=== PATIENT | female | born 2000 | race Caucasian/White ===

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

== ENCOUNTER 2024-03-29 09:49 | Emergency (ER) | payer BC, SELFPAY ==
[2024-03-29 09:50] VITALS: BP 137/88; PULSE 117; RESP 16; TEMP 36.6; O2SAT 98; BMI 38.5
--- NOTE | 2024-03-29 09:52 | NURSING ---
NO OLD EKGS
--- NOTE | 2024-03-29 09:54 | EKG12_ITS ---
Test Reason : CP Blood Pressure : / mmHG Vent. Rate : 110 BPM Atrial Rate : 110 BPM P-R Int : 162 ms QRS Dur : 084 ms QT Int : 324 ms P-R-T Axes : 059 041 029 degrees QTc Int : 438 ms Sinus tachycardia Otherwise normal ECG Confirmed by TACO RIVERA, MAGAN ([id number]), editor department JOSE CURTIS ([id number]) on 03/30/2024 8:35:35 AM Referred By: NASREEN Confirmed By:MAGAN ESPAÑA MD
[2024-03-29] MEDS: 0.9% Normal Saline (1000mL) 1,000 ML 999 ML IV (10:08)
[2024-03-29 10:18] LABS: Absolute Lymphocyte Count 1.21 X10^3/uL (0.83-4.51); Absolute Neutrophil Count 10.1 X10^3/uL (2.0-7.7); Basophil# 0.02 X10^3/uL; Basophil% 0.2 % (0-1); Eosinophil# 0.05 X10^3/uL; Eosinophils% 0.4 % (0-5); Hematocrit 35.3 % (37-47); Hemoglobin 11.7 g/dL (12.0-15.0); Lymphocyte # 1.21 X10^3/ul (0.83-4.51); Lymphocyte % 10.1 % (19-41); Mean Corp Hgb Conc 33.1 g/dL (32-36); Mean Corpuscular Hgb 25.8 pg (27.0-32.0); Mean Corpuscular Volume 77.8 fL (81-99); Mean Platelet Vol. 9.8 fl (6.2-12.0); Monocyte# 0.56 X10^3/uL; Monocyte% 4.7 % (0-10); NRBC Flagged by Analyzer 0 % (0-5); Neutrophil # 10.07 X10^3/uL (2.7-7.7); Neutrophil % 84.3 % (47-70); Platelet Count 240 K/mm3 (150-450); RBC Distribution Width CV 13.9 % (11.6-14.6); RBC Distribution Width SD 38.9 fl (35.1-43.9); Red Blood Count 4.54 M/mm3 (4.2-5.4)
[2024-03-29 10:35] LABS: Anion Gap 7 (5-15); BUN 5 mg/dL (7-18); Calcium,Total 9.2 mg/dL (8.5-10.1); Chloride 105 mmol/L (98-107); Creatinine, Serum 0.46 mg/dL (0.55-1.02); EST Glomerular Filtration Rate 180 mL/min (>60); Est Glom Filt Rate - Afr Amer 218 mL/min (>60); Glucose 122 mg/dL (74-106); Potassium 3.8 mmol/L (3.5-5.1); Sodium Level 134 mmol/L (136-145); Troponin-I HS < 3 pg/mL (3.0-54.0)
[2024-03-29 10:40] LABS: D-Dimer Quantitative (DVT/PE) 1.35 FEU/ug/m (0.27-0.49)
--- NOTE | 2024-03-29 10:42 | CT_ITS ---
STUDY: CTA CHEST REASON FOR EXAM: Female, 23 years old. Elevated d-dimer. Chest tightness and chest pain. The patient is 26 weeks . The patient was shielded appropriately. RADIATION DOSAGE (If Supplied By Facility): CTDIvol = ( 10.29 ) mGy, DLP = ( 473.26 ) mGycm TECHNIQUE: The examination was performed with the intravenous administration of IV 100mL Isovue-370. Post-processing of the angiographic images was performed, with multiplanar reformation and 3D reconstruction. Limited study due to the patient motion artifact. Individualized dose optimization techniques were used for this CT. COMPARISON: None. FINDINGS: Elevation of the right hemidiaphragm. Normal enhancement of the main pulmonary artery and right and left pulmonary arteries. Normal enhancement of the bilateral peripheral pulmonary arteries. There is no demonstrated pulmonary embolism. Normal thoracic aorta and visualized great vessels. There is no demonstrated aortic dissection. There is thickening of the anterior pericardium suggestive of pericardial effusion. Correlation with a cardiac echo recommended. Normal mediastinum. Normal hilar regions. Normal visualized trachea and bronchi. The lungs are well expanded. Normal pulmonary parenchyma. Normal pleura. Normal chest wall structures. Normal osseous structures. Normal visualized upper abdomen. CT/CTA Chest W/WO Contrast IMPRESSION: No evidence of pulmonary embolism although the study is limited. Pericardial thickening. Correlation with echocardiogram recommended. Electronically Signed: Micky Goel MD at 12:09 EDT ,
--- NOTE | 2024-03-29 10:54 | ED.VIS.CHEST ---
HPI History of Present Illness Chief Complaint: Chest Pain Narrative Narrative: 23-year-old female currently G1, P0 at 26 weeks 3 days presenting with chest tightness. She states is not sharp or pleuritic. It is worse laying down and better sitting forward. She states that while she was sleeping last night she woke up several times feeling short of breath and having chest tightness. She denies having a fever, chills, cough. She states that when she is ambulating it is not worse or better. Denies any recent illnesses. This started sometime overnight. She went to urgent care and was sent to the ED for evaluation. No history of DVT/PE. No cardiac history. when in bed. She states also when she bends over to pick something up she notices worse. PFSH PFSH Medical History no medical history Home Medications ?Medication ?Instructions ?Recorded ?Last Taken ?Type No Known/Unobtainable [No Known 10/13/15 Unknown History Home Medications] Allergy/AdvReac Type Severity Reaction Status Date / Time No Known Allergies Allergy Verified 10/13/15 17:21 Family History no significant family his Surgical History (Updated 03/29/24 @ 10:21 by Raymond Amaro) Hx of tonsillectomy [place] teeth removed Social History Smoking Status: Never smoker EXAM Physical Exam Const Vital Signs: 03/29/24 09:50 03/29/24 10:22 03/29/24 10:25 Temperature 98 F Temperature Source Temporal Pulse Rate 117 H Respiratory Rate 16 Respiratory Effort Normal Blood Pressure 137/88 H Blood Pressure Mean 104 Pulse Ox 98 Oxygen Delivery Method Room Air Room Air 03/29/24 11:49 03/29/24 13:00 Temperature Temperature Source Pulse Rate 107 H 114 H Respiratory Rate 17 18 Respiratory Effort Blood Pressure 119/68 117/78 Blood Pressure Mean 85 91 Pulse Ox 99 100 Oxygen Delivery Method Room Air Room Air General Appearance ED: Negative for pallor HEENT Reports normocephalic, head/scalp atraumatic and moist mucous membranes Eyes PERRL and EOMs intact bilaterally Chest Wall inspection of chest normal Resp normal respiratory effort and clear to auscultation bilaterally Auscultation: Negative for rales, rhonchi or wheezes Cardio regular rate and regular rhythm GI normal to inspection, nondistended, normoactive bowel sounds and non-distended Auscultation: normoactive bowel sounds Palpation: soft Narrative: Deferred Extremity normal to inspection General Extremety ED: Negative for edema or tenderness General Extremity: Negative for edema Neuro oriented x3 and CN's II-XII intact bilaterally Sensorium / Orientation: alert Motor Exam: strength 5/5 throughout Psych mental status grossly normal Attitude: No agitated Skin no rashes or lesions noted and no wounds General Skin Exam: Negative for jaundice or pallor MDM MDM MDM Narrative Medical decision making narrative: Patient presenting with chest pain. She is 28 weeks . Differential includes but is not limited to ACS, PE, pneumonia, Boerhaave's, pneumothorax, muscle strain, costochondritis, pericarditis. CBC will be obtained to assess white blood cell count, hemoglobin, platelets. BMP to assess renal function, electrolytes, glucose. High-sensitivity troponin and EKG to assess for ischemia/dysrhythmia. Will obtain a D-dimer to assess for PE. CBC shows minimal white blood cell count at 12.0. Hemoglobin 11.7. Platelets are normal at 240. Renal function and electrolytes within normal limits. High-sensitivity troponin less than 3. EKG sinus tachycardia at a rate of 110 bpm without sign of ischemic change or dysrhythmia. D-dimer was elevated at 1.35 so we will obtain a CTA of the chest after a long discussion with her about risk benefits. She is amenable to this. EkG interpreted by myself as sinus tachycardia at a rate of 110 bpm with signs of ischemic changes. Does not appear to be consistant with pericarditis as her symptoms would would suggest. CTA was negative for PE, dissection, or other acute pulmonary findings but does show thickening of the pericardium. Discussed the case with Dr. Jacob who recommended 324 mg asa and we will obtain a stat echocardiogram. Unfortunately this will have to be signed out to the incoming ed physician. Patient is updated and in stable condition. 1. Chest pain 2. Dyspnea Lab Data Attestation: I reviewed the patient's lab results. Labs: Laboratory Results - last 24 hr 03/29/24 03/29/24 10:06 10:09 WBC 12.0 H RBC 4.54 Hgb 11.7 L Hct 35.3 L MCV 77.8 L MCH 25.8 L MCHC 33.1 RDW Std Deviation 38.9 RDW Coeff of Mariam 13.9 Plt Count 240 MPV 9.8 Immature Gran % (Auto) 0.300 Neut % (Auto) 84.3 H Lymph % (Auto) 10.1 L Avery % (Auto) 4.7 Eos % (Auto) 0.4 Baso % (Auto) 0.2 Absolute Neuts (auto) 10.1 H Absolute Lymphs (auto) 1.21 Nucleated RBC % 0 ESR 30 D-Dimer Quant (PE/DVT) 1.35 H* Sodium 134 L Potassium 3.8 Chloride 105 Carbon Dioxide 22.0 Anion Gap 7 BUN 5 L Creatinine 0.46 L Estim Creat Clear Calc 261.30 Est GFR (MDRD) Af Amer 218 Est GFR (MDRD) Non-Af 180 BUN/Creatinine Ratio 11.0 Glucose 122 H Calcium 9.2 Troponin I High Sens < 3 L C-React Prot Ext Range 21.00 H Radiography Diagnostic Testing: Clinical Impression(s) from Imaging Studies Chest CTA 03/29/24 10:42 IMPRESSION: No evidence of pulmonary embolism although the study is limited. Pericardial thickening. Correlation with echocardiogram recommended. Electronically Signed: Micky Goel MD at 12:09 EDT , Discharge Plan Triage Chief Complaint: Chest Pain ED Provider: Gianfranco Hunter Dx/Rx/DC Orders Prescriptions: No Action No Known Home Medications Primary Care Provider: Epi Martini Referrals: Epi Martini MD [Primary Care Provider] - Print Language: Taiwanese
[2024-03-29 11:49] VITALS: BP 119/68; PULSE 107; RESP 17; O2SAT 99
[2024-03-29 12:42] LABS: Erythrocyte Sedimentation Rate 30 mm/hr (0-30)
[2024-03-29 13:00] VITALS: BP 117/78; PULSE 114; RESP 18; O2SAT 100
--- NOTE | 2024-03-29 13:00 | ECHOD_ITS ---
Reason For Study: CHEST PAIN Procedure This was a 2D Doppler, Color Flow transthoracic echocardiogram. Exam performed portable in ED. Left Ventricle Normal LV size. Left ventricular systolic function is normal. The left ventricular ejection fraction is 60 %. No regional wall motion abnormalities noted. Right Ventricle Normal right ventricle. Normal systolic function. Atria Normal left atrium. Normal right atrium. Mitral Valve The mitral valve is structurally normal. No prolapse or stenosis seen. Tricuspid Valve Normal tricuspid valve. Aortic Valve Trisinus/trileaflet aortic valve. Pulmonic Valve Normal pulmonic valve. Great Vessels Normal aortic root. The pulmonary artery is normal size. Normal inferior vena cava. Pericardium/Pleural No pericardial effusion. MMode/2D Measurements & Calculations LVIDd: 5.4 cm IVSd: 0.86 cm LVOT diam: 2.2 cm LVIDs: 3.7 cm LVPWd: 0.87 cm LVOT area: 3.9 cm2 RVDd: 3.7 cm FS: 32.2 % Ao root diam: 3.0 cm LAV(MOD-bp): 45.9 ml LVAd ap4: 29.0 cm2 LAV(MOD-bp) Indexed: 19.9 ml/m2 LVLd ap4: 8.2 cm LAV(MOD-sp2): 47.0 ml EDV(MOD-sp4): 85.6 ml LAV(MOD-sp4): 44.2 ml EDV(sp4-el): 87.3 ml LVAs ap4: 17.4 cm2 LVLs ap4: 6.7 cm ESV(MOD-sp4): 39.2 ml ESV(sp4-el): 38.6 ml EF(MOD-sp4): 54.2 % EF(sp4-el): 55.8 % LVAd ap2: 31.2 cm2 SV(MOD-sp4): 46.4 ml SV(MOD-sp2): 54.6 ml LVLd ap2: 8.4 cm EDV(MOD-sp2): 97.4 ml EDV(sp2-el): 98.0 ml LVAs ap2: 18.6 cm2 LVLs ap2: 6.6 cm ESV(MOD-sp2): 42.8 ml ESV(sp2-el): 44.5 ml EF(MOD-sp2): 56.1 % SV(sp4-el): 48.7 ml LA dimension(2D): 4.7 cm LA A4 area: 18.3 cm2 RA A4 area: 15.8 cm2 TAPSE: 2.4 cm Time Measurements MV dec time: 0.14 sec Doppler Measurements & Calculations MV E max yakov: 112.4 cm/sec Lat Peak E' Yakov: 17.8 cm/sec Med Peak E' Yakov: 13.1 cm/sec E/E' lat: 6.3 E/E' med: 8.6 Ao V2 max: 169.3 cm/sec LV V1 max: 129.4 cm/sec SV(LVOT): 99.1 ml Ao max P.5 mmHg LV V1 max P.7 mmHg Ao V2 mean: 121.2 cm/sec LV V1 mean P.1 mmHg Ao mean P.6 mmHg LV V1 mean: 96.6 cm/sec Ao V2 VTI: 31.5 cm LV V1 VTI: 25.1 cm AV (velocity ratio): 0.80 SHANELL(I,D): 3.1 cm2 SHANELL(V,D): 3.0 cm2 PA V2 max: 120.8 cm/sec PA max PG (full): 2.3 mmHg ECHO/Echo Complete Interpretation Summary Normal LV size. Left ventricular systolic function is normal. The left ventricular ejection fraction is 60 %. No pericardial effusion. Structurally normal valves. Ordering Physician: Gianfranco Hunter Performed By: Maricarmen Desai RDCS
[2024-03-29] MEDS: Aspirin 81 MG TAB.CHEW 324 MG PO (13:06)
[2024-03-29 15:00] VITALS: BP 128/77; PULSE 99; RESP 16; O2SAT 100
[2024-03-29 17:00] VITALS: BP 114/73; PULSE 106; RESP 17; TEMP 36.2; O2SAT 98
== END 2024-03-29 17:22 | disposition home or self-care (01) ==
PROVIDERS: Emergency Provider Student in an Organized Health Care Education/Training Program; PCP Family Medicine; Visit Provider Student in an Organized Health Care Education/Training Program
DX: O26.893 Other specified pregnancy related conditions, third trimester (principal); R06.00 Dyspnea, unspecified; R07.89 Other chest pain; R79.89 Other specified abnormal findings of blood chemistry; Z79.82 Long term (current) use of aspirin; Z3A.28 28 weeks gestation of pregnancy
CPT/HCPCS: 71275; 80048; 84484; 85025; 85379; 85652; 86140; 93005; 93306; 96360; 96361; 99283; Q9967

== ENCOUNTER 2024-06-23 07:25 | Inpatient (IN) | payer BC, SELFPAY ==
[2024-06-23] VITALS (42 sets, daily range): BP systolic 88–151; BP diastolic 50–87; PULSE 72–107; RESP 16–18; TEMP 36.1–37.2; O2SAT 82–100; BMI 42.5
[2024-06-23] MEDS: Lactated Ringers 1,000 ML 50 ML IV ×2 (07:50→16:18)
[2024-06-23 08:06] LABS: Absolute Lymphocyte Count 1.65 X10^3/uL (0.83-4.51); Absolute Neutrophil Count 8.2 X10^3/uL (2.0-7.7); Basophil# 0.02 X10^3/uL; Basophil% 0.2 % (0-1); Eosinophil# 0.05 X10^3/uL; Eosinophils% 0.5 % (0-5); Hematocrit 34.5 % (37-47); Hemoglobin 11.5 g/dL (12.0-15.0); Lymphocyte # 1.65 X10^3/ul (0.83-4.51); Lymphocyte % 15.5 % (19-41); Mean Corp Hgb Conc 33.3 g/dL (32-36); Mean Corpuscular Hgb 26.4 pg (27.0-32.0); Mean Corpuscular Volume 79.1 fL (81-99); Mean Platelet Vol. 10.9 fl (6.2-12.0); Monocyte# 0.66 X10^3/uL; Monocyte% 6.2 % (0-10); NRBC Flagged by Analyzer 0 % (0-5); Neutrophil # 8.21 X10^3/uL (2.7-7.7); Platelet Count 238 K/mm3 (150-450); RBC Distribution Width CV 13.7 % (11.6-14.6); RBC Distribution Width SD 39.1 fl (35.1-43.9); Red Blood Count 4.36 M/mm3 (4.2-5.4); White Blood Count 10.7 K/mm3 (4.4-11.0)
[2024-06-23] MEDS: Oxytocin 15 Units/NS 250ml 15 UNITS/250 ML IV.SOLN 2 UNITS IV (08:08)
--- NOTE | 2024-06-23 08:21 | PCM.HP.OB ---
HPI - General General Date of Admission: 06/23/24 HPI Narrative JAYESH MARSH, is a 24 F 2 38.5 weeks who presents for medically indicated IOL - CHTN and Obesity in BMI >40. pt offers no other concerns. PFSH PFS Medical History (Updated 06/23/24 @ 08:[address] Gracie Noel MD) Thyroid disorder Chronic hypertension Home Medications ?Medication ?Instructions ?Recorded ?Last Taken ?Type metoprolol tartrate 25 mg tablet 25 mg PO DAILY 03/29/24 Unknown History propylthiouracil 50 mg tablet 100 mg PO TID 03/29/24 Unknown History Allergy/AdvReac Type Severity Reaction Status Date / Time No Known Allergies Allergy Verified 06/23/24 07:48 Surgical History (Updated 06/23/24 @ 07:53 by Gina August) History of surgery Hx of tonsillectomy [place] teeth removed Social History Smoking Status: Never smoker History Elective abortions Hx Para 0 Spontaneous abortions Hx # Term Pregnancies Ectopic pregnancies Hx # Pregnancies Multiple births # of living children NST FHR Rate Baby A Baseline: 135 Variability:: Moderate Accelerations:: 15 x 15 Decelerations:: None NST Reactive:: Yes FHR Category:: Category I Uterine Activity:: irregular Vital Signs Vital Signs Vital Signs: 06/23/24 07:44 06/23/24 07:44 06/23/24 07:44 Temperature Temperature Source Temporal Pulse Rate 99 Respiratory Rate Blood Pressure 128/74 H BP Systolic 128 BP Diastolic 74 06/23/24 07:44 06/23/24 07:44 Temperature 97.0 F L Temperature Source Pulse Rate Respiratory Rate 16 Blood Pressure BP Systolic BP Diastolic Weight Weight: 130.635 kg Body Mass Index (BMI) 42.5 Physical Exam Narrative VE: 3/65/-2- AROM performed Small amount clear fluid Const alert and oriented x3 General Appearance: cooperative HEENT normocephalic GI GI Narrative: Gravid, non tender to palpation. OB / External & Speculum: external exam normal Extremity normal to inspection Skin no rashes or lesions noted Neuro oriented x3 and CN's II-XII intact bilaterally Psych Appearance: grossly normal Labs Labs Labs: Antibody Screen Pending Hct 34.5 % (37-47) L Hgb 11.5 g/dL (12.0-15.0) L Syphilis Total Ab Pending Miscellaneous Test Assessment & Plan (1) Obesity affecting in third trimester, antepartum: (2) 38 weeks gestation of : (3) Chronic hypertension: (4) Thyroid disorder: COMMENT: hyperthyroidism PLAN: Plan Admit to L&D [place] FHR/TOCO Epidural if requested for pain Monitor VS Anticipate Pitocin/AROM for IOL
[2024-06-23] MEDS: fentaNYL-bupivacaine (epidural) 100 ML BAG EPIDURAL ×2 (12:17→17:00)
--- NOTE | 2024-06-23 12:43 | PN_ITS ---
Progress Note pt seen at bedside. VE performed. 2, IUPC placed. Pt starting to get comfortable with Epidural in place. continue pitocin. FHR tracing cat 1 Re active.
--- NOTE | 2024-06-23 12:43 | PCM.PN.BLA ---
Progress Note pt seen at bedside. VE performed. /2, IUPC placed. Pt starting to get comfortable with Epidural in place. continue pitocin. FHR tracing cat 1 Reactive.
[2024-06-23] MEDS: Acetaminophen 500 MG Tablet PO (17:55)
[2024-06-23] MEDS: Sodium Citrate/Citric Acid 30 ML UDC PO (22:31)
--- NOTE | 2024-06-23 22:58 | PCM.PN.BLA ---
Progress Note pt at 6cm for >4hours with membranes ruptured and on pitocin with current [place] units of 150- 200, shared medical decision making at this time with patient is to proceed with primary c/s. Pt was counseled on risks of c/s - given opportunity to ask questions. Had to wait for OR due to other CS being done at this current time.
[2024-06-23] MEDS: Lidocaine 1% (20 ml mdv) 20 ML Vial INFILT (23:30)
[2024-06-24] VITALS (23 sets, daily range): BP systolic 91–143; BP diastolic 52–102; PULSE 78–124; RESP 14–18; TEMP 36.1–37.3; O2SAT 95–100
[2024-06-24] MEDS: Azithromycin 500 MG in Dextrose 5%-Water (250mL Bag) 250 ML 250 MG IV
[2024-06-24] MEDS: Cefazolin 3 GM in 0.9% Normal Saline (100mL Bag) 100 ML IV
--- NOTE | 2024-06-24 00:27 | EX.PCM.OBRPT ---
Details Operative Information Date of Procedure: 06/24/24 Pre-Operative Diagnosis: Arrest of dilation, CPD, 38weeks gestation, obesity in (BMI >40, Chronic Hypertension, Hyperthyroidism, Post-Operative Diagnosis: Same, live male Indications Narrative: Patient was IOL for CHTN, Obesity with BMI >40. AROM and Pitocin was 6cm for >5hrs with ruptured membranes and adequate contractions. I examined patient in OR prior to start of case, Caput noted, 6cm/80-90/-3. Classification: OLIVE Procedure Type: low transverse supervisor small appliance assembly #1: Nohemy Buchanan supervisor small appliance assembly #2: dionisio brown [id number] Type of Anesthesia: Epidural, General (patient did not get enough pain relief, changed to general after fascial incision made. ) and Local with 1% Lidocaine Special Medications: hemoblast Antibiotic Given: Ancef 3 grams IV x1 and Zithromax 500 mg/5 mL X1 Drain: Lopez to straight drain Estimated Blood Loss: 750 Fluids Replaced: 850 Procedure Start Time: 23:34 Procedure Stop Time: 00:30 Time of Delivery: 23:46 Findings Description of Procedure: After informed consent was obtained the patient was taken the operating room. She was then placed in the supine position. She was prepped and draped in the normal sterile fashion. Anesthesia was not adequate. Lidocaine 1% was injected at incision site and Nitrous. At this time a Pfannenstiel skin incision was made with a knife was carried down to the underlying layer of the fascia. The fascial incision was then extended laterally using banegas scissor. pt still feeling pain- decision for General anesthesia. Rectus muscles were then in the midline bluntly and peritoneum was entered bluntly. Gentle opposing traction was placed. At this time the vesicouterine peritoneum was identified. Scalpel was used to make a uterine incision in a low transverse fashion. The uterus was then entered bluntly gentle opposing traction was placed to extend this incision. 's head was brought to the uterine incision was delivered atraumatically. was vigorous at delivery and delayed cord clamping performed. Cord was clamped and cut was handed to the waiting nursery team. The Placenta was removed from the uterus. The uterus was then removed from the abdominal cavity. The uterus was cleared of all clots and debris using a lap. At this time the uterine incision was reapproximated using #1 Vicryl in a running locked fashion. Hemostasis was appreciated. Posterior cul-de-sac was then cleared of all clots and debris. Uterus was placed back in the abdominal cavity. Gutters were cleared of all clots and debris. Uterine incision was reevaluated and oozing noted in right lateral aspect. Difficult to suture for hemotasis- hemoblast placed and pressure held, good hemostasis appreciated. At this time the peritoneum was grasped with Kellys reapproximated using #2 Vicryl suture in a running fashion. Hemoblast placed over rectus. Fascia was then reapproximated using #1 PDS in a running fashion. Subcu layer was irrigated with NS, HEMOBLAST placed and it was reapproximated with #2 0 plain gut suture in an interrupted fashion. Subcu layer was closed using 4-0 Monocryl in a subcu fashion. Dry sterile dressing was applied. Instrument lap needle count correct ?2. Anticipated normal postoperative course. Presentation: Positive for Vertex Amniotic Membrane Rupture Type: Artificial Amniotic Fluid Description: Clear Placental Delivery Description: Expressed Placenta Disposition: [facility] Cord Vessel Description: 3 Vessels Cord Entanglement: None Cord Gases: ABG and VBG A Gender: Male (1 minute): 9 (5 minute): 9 Delayed Cord Clamping: No Complications Risks of Surgery Discussed w/Patient: Bleeding, Anesthesia Risks, Infection and Injury to surrounding structure(s) including bowel and bladder Complications: conversion to General due to pain.
[2024-06-24] MEDS: Oxytocin 15 Units/NS 250ml 15 UNITS/250 ML IV.SOLN 83 UNITS IV (00:50)
[2024-06-24] MEDS: Ketorolac 30 MG/ML Syringe IV ×4 (01:19→19:58)
[2024-06-24] MEDS: Acetaminophen 500 MG Tablet 1000 MG PO ×4 (02:17→19:58)
[2024-06-24] MEDS: Lactated Ringers 1,000 ML 100 ML IV ×2 (02:45→07:13)
[2024-06-24 05:24] LABS: Hematocrit 27.1 % (37-47); Hemoglobin 9.1 g/dL (12.0-15.0); Mean Corp Hgb Conc 33.6 g/dL (32-36); Mean Corpuscular Hgb 26.8 pg (27.0-32.0); Mean Corpuscular Volume 79.7 fL (81-99); Mean Platelet Vol. 10.9 fl (6.2-12.0); Platelet Count 245 K/mm3 (150-450); RBC Distribution Width CV 13.7 % (11.6-14.6); RBC Distribution Width SD 39.3 fl (35.1-43.9); White Blood Count 21.3 K/mm3 (4.4-11.0)
--- NOTE | 2024-06-24 05:29 | NURSING ---
Epidural cath DC, blue tip intact
[2024-06-24] MEDS: 0.9% Saline Lock 10 ML Syringe IV ×2 (07:12→19:58)
--- NOTE | 2024-06-24 08:29 | PCM.PN.OB ---
Subjective Subjective Denies complaints Objective Data Objective Data Vital Signs: Vital Signs Temp Pulse Resp BP Pulse Ox O2 Del Method 97.0 F L 107 H 16 114/67 96 Room Air 06/24/24 07:46 06/24/24 07:46 06/24/24 07:46 06/24/24 07:46 06/24/24 07:46 06/24/24 07:46 Oxygen Delivery Method Room Air Weight: 288 lb Body Mass Index (BMI) 42.5 Intake & Output: Intake and Output for Last 24 Hours 06/22/24 06/23/24 06/24/24 23:59 23:59 23:59 Intake Total 1090.34 / 1090.34 1527.50 / 1527.50 Output Total 300 / 300 1000 / 1000 Balance 790.34 / 790.34 527.50 / 527.50 Lab / Micro Data 06/24/24 05:15 Labs: Laboratory Results - last 24 hr 06/23/24 07:50: Blood Type B POSITIVE, Antibody Screen NEGATIVE 06/24/24 05:15: WBC 21.3 H, RBC 3.40 L, Hgb 9.1 L, Hct 27.1 L, MCV 79.7 L, MCH 26.8 L, MCHC 33.6, RDW Std Deviation 39.3, RDW Coeff of Mariam 13.7, Plt Count 245, MPV 10.9 Physical Exam Const alert, oriented x3 and no apparent distress HEENT normocephalic GI soft to palpation, non-tender and non-distended GI Narrative: fundus firm, mid & below umbilicus Incision - bandage c/d/i Extremity normal to inspection and no calf tenderness Assessment & Plan (1) Thyroid disorder: COMMENT: POD#1 (2) Chronic hypertension: (3) Obesity affecting in third trimester, antepartum: QUALIFIERS: Obesity type affecting : unspecified obesity Qualified Code(s): O99.213 - Obesity complicating , third trimester (4) Delivery by section: PLAN: Plan Heme - HDS, needs iron for anemia ID - AF, no signs infection GI/ - no issues Chtn - monitor BPs Routine care
[2024-06-24] MEDS: Senna/Docusate Sodium 1 Tablet PO (10:42)
[2024-06-24] MEDS: Enoxaparin 40 MG/0.4 ML Syringe SC (12:15)
[2024-06-24] MEDS: Ferrous Sulfate 325 MG Tablet PO (12:15)
--- NOTE | 2024-06-24 15:30 | CASEMGMT ---
Social Work Assessment Labor and Delivery Unit Patient Address: [address] [place] [address] Phone number: [phone] Date of Referral: 06/23/24 Time of Referral:? 1013 Referred By: Dr. Mahesh Hernandez Date of Intervention: ?06/24/24? Time of Intervention:? 1500 Reason for Referral:? hx of anxiety Sw completed chart review and acknowledges social work consult due to maternal mental health history of anxiety. Sw presented to bedside and introduced self to mother of baby (MOB- Zahra) and father of baby (KOREY- Alen). Sw explained reason for sw involvement and completed psychosocial assessment. History obtained from: medical records, MOB and FOB. Household composition: Currently residing in the family home is MOB, KOREY and now baby when ready for discharge. Parents deny any issues or concerns with housing reporting that it is safe and secure. Patient's parent/guardian status:?COLLINS states that she and KOREY have been together for 7 years after starting to date in high school. No concerns reported of domestic violence or intimate partner violence. This is first baby for both parents together. ? Medical History: ?COLLINS is 24 year old female who is 1, para 0- now 1 following labor and delivery of . COLLINS received routine care during with [facility]. COLLINS presented to hospital for induction of labor and required primary due to failure to progress. Baby boy, named Radha Lowry was born on 06[birth year]/24 at 38 weeks gestation weighing 7lb 11oz with apgars of 9 and 9 at one and five minutes of life respectfully. MOB states that they are still working on breast feeding. Baby will be followed by Dr. Agudelo for pediatrics. Educational Status:? Both parents graduated high school. COLILNS is in college currently for Human Resources. No issues with reading, learning or comprehension. Financial Status: Both parents are gainfully employed outside of the home. 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 MOB is working test department helper and attending school. Infant Supplies: Parents report to obtaining all necessary baby supplies, including: car seat, safe sleep space, clothes, diapers and wipes. Childcare/Caregiver(s):? MOB will be the primary caregiver along with FOB when he is not working. Transportation:?Both parents have their drivers license and reliable means of transportation. No barriers. Programs/Agencies Involved: ???Parents deny being connected to any community agencies that assist them financially at this time. MOB reports that in the past she was connected to [facility] for counseling and pharmacological support. Children Services/Legal Issues:??? No history of children services involvement. No issues or concerns warranting children services referral at this time. Behavioral Health Issues: ??Mental Health History:??FOB denies mental health history. MOB states that she was diagnosed with anxiety a couple of years ago. MOB states that she believes it was situation as at that time a lot of things were happening. MOB states that she changed her major, they just bought a house and were getting . MOB states that she tried several different types of medications to help her anxiety but none of them seemed to work. MOB states that if she starts to struggle with her mental health during this period she would feel comfortable getting reconnected with them. ? Substance Use History:?Parents deny substance use prior to and during . ? Family History: Parents deny family history of addiction or significant mental health diagnoses. ? Drug Screens: No drug screens observed in chart review. Family/Social Stressors:? Parents deny any issues, concerns or stressors at this time. Support Systems: MOB states that their parents and siblings are their biggest supports. Depression/Shaken Baby/Safe Sleeping: Sw educated parents on signs and symptoms of baby blues and mood and anxiety disorders to be on the lookout for during this period. Parents state that they are knowledgeable about these topics. FOB states that if MOB were to struggle he would be able to recognize that and would know how to help her. Sw educated parents on shaken baby prevention and ABCs of safe sleep. Parents express understanding. ASSESSMENT:? MOB and baby admitted following unplanned delivery. MOB and FOB both present and participated in completion of assessment. MOB and FOB report to being supportive to one another and are familiar with what MOB struggles with regarding her mental health. Parents state that they have all necessary baby supplies and natural supports in place. MOB was sitting in chair in room and baby was seen sleeping comfortably in bassinet. Parents were talkative and receptive to sw involvement and support. PLAN:?? No other services requested or indicated. MOB and baby to be discharged when medically ready. Parents were provided literature regarding: signs and symptoms of baby blues and mood and anxiety disorders, Help Me Grow, shaken baby prevention, ABCs of safe sleep and a list of county resources that are available for them should any needs present themselves. Sanaz Moore, DIRECTOR CLINICAL APPLICATIONS, ELECTRONIC SCALE ASSEMBLER AND TESTER
[2024-06-25] MEDS: Ibuprofen 600 MG Tablet PO ×4 (00:30→17:57)
[2024-06-25] MEDS: Enoxaparin 40 MG/0.4 ML Syringe SC ×2 (00:31→11:20)
[2024-06-25] MEDS: Acetaminophen 500 MG Tablet 1000 MG PO ×4 (01:26→21:01)
[2024-06-25 02:20] VITALS: BP 111/68; PULSE 116; RESP 16; TEMP 37.1; O2SAT 97
[2024-06-25 09:04] VITALS: BP 117/70; PULSE 84
[2024-06-25] MEDS: Senna/Docusate Sodium 1 Tablet PO (09:04)
[2024-06-25] MEDS: Metoprolol Tartrate 25 MG Tablet PO (09:04)
[2024-06-25 09:07] VITALS: BP 117/70; PULSE 84; RESP 16; TEMP 36.4
[2024-06-25] MEDS: Ferrous Sulfate 325 MG Tablet PO (11:20)
[2024-06-25 14:00] VITALS: BP 106/72; PULSE 90; RESP 16; TEMP 36.1; O2SAT 98
--- NOTE | 2024-06-25 17:43 | PCM.PN.OB ---
Subjective Subjective Doing well. Pain controlled. Ambulating and voiding without difficulty. Bottle feeding. Objective Data Objective Data Vital Signs: Vital Signs Temp Pulse Resp BP Pulse Ox O2 Del Method 97.6 F L 84 16 117/70 97 Room Air 06/25/24 09:07 06/25/24 09:07 06/25/24 09:07 06/25/24 09:07 06/25/24 02:20 06/25/24 02:20 Oxygen Delivery Method Room Air Weight: 130.635 kg Body Mass Index (BMI) 42.5 Intake & Output: Intake and Output for Last 24 Hours 06/23/24 06/24/24 06/25/24 23:59 23:59 23:59 Intake Total 1090.34 / 1090.34 2527.50 / 2527.50 Output Total 300 / 300 1500 / 1500 1400 / 1400 Balance 790.34 / 790.34 1027.50 / 1027.50 -1400 / -1400 Lab / Micro Data 06/24/24 05:15 ROS Constitutional Constitutional: Denies fatigue, fever(s) or malaise Eyes Eyes: Denies change in vision ENT HEENT: Denies dizziness or headache(s) Cardiovascular Cardiovascular: Denies chest pain, dyspnea or lightheadedness Respiratory/Chest Respiratory/Chest: Denies cough or dyspnea Gastrointestinal Gastrointestinal: Denies change in bowel habits Genitourinary Genitourinary: Denies burning urination or genital lesions Integumentary Integumentary: Denies rash Neurologic Neurologic: Denies confusion, dizziness, headache(s), numbness or weakness Physical Exam Const alert General Appearance: cooperative GI GI Narrative: soft, moderate distention, fundus firm, appropriately tender. Abdominal bandage clean dry and intact Assessment & Plan (1) Delivery by section: (2) Chronic hypertension: PLAN: Plan Discharge tomorrow
[2024-06-25 20:00] VITALS: BP 139/89; PULSE 115; RESP 16; TEMP 36.4; O2SAT 99
[2024-06-26] MEDS: Ibuprofen 600 MG Tablet PO ×3 (00:08→12:06)
[2024-06-26] MEDS: Enoxaparin 40 MG/0.4 ML Syringe SC ×2 (00:08→12:06)
[2024-06-26 02:10] VITALS: BP 137/93; PULSE 116; RESP 16; TEMP 36.8; O2SAT 97
[2024-06-26] MEDS: Acetaminophen 500 MG Tablet 1000 MG PO ×2 (02:57→08:44)
[2024-06-26 08:00] VITALS: BP 133/80; PULSE 94; RESP 14; TEMP 36.4; O2SAT 99
--- NOTE | 2024-06-26 09:01 | PCM.PN.OB ---
Subjective Subjective Doing well. Pain controlled. Ambulating and voiding without difficulty. Bottle feeding. Objective Data Objective Data Vital Signs: Vital Signs Temp Pulse Resp BP Pulse Ox O2 Del Method 98.3 F 116 H 16 137/93 H 97 Room Air 06/26/24 02:10 06/26/24 02:10 06/26/24 02:10 06/26/24 02:10 06/26/24 02:10 06/26/24 02:10 Oxygen Delivery Method Room Air Weight: 130.635 kg Body Mass Index (BMI) 42.5 Intake & Output: Intake and Output for Last 24 Hours 06/24/24 06/25/24 06/26/24 23:59 23:59 23:59 Intake Total 2527.50 / 2527.50 Output Total 1500 / 1500 1400 / 1400 Balance 1027.50 / 1027.50 -1400 / -1400 Lab / Micro Data 06/24/24 05:15 ROS Constitutional Constitutional: Denies fatigue, fever(s) or malaise Eyes Eyes: Denies change in vision ENT HEENT: Denies dizziness or headache(s) Cardiovascular Cardiovascular: Denies chest pain, dyspnea or lightheadedness Respiratory/Chest Respiratory/Chest: Denies cough or dyspnea Gastrointestinal Gastrointestinal: Denies change in bowel habits Genitourinary Genitourinary: Denies burning urination or genital lesions Integumentary Integumentary: Denies rash Neurologic Neurologic: Denies confusion, dizziness, headache(s), numbness or weakness Physical Exam Const alert General Appearance: cooperative GI GI Narrative: soft, moderate distention, fundus firm, appropriately tender. Abdominal bandage clean dry and intact Assessment & Plan (1) Thyroid disorder: (2) Delivery by section: PLAN: Plan Discharge home
--- NOTE | 2024-06-26 09:03 | PCM.DC.SUM ---
Providers Date of Admission: 06/23/24 Date of Discharge: 06/26/24 Primary Care Physician: Dr. Epi Martini MD Reason For Visit: PRIMARY C SECTION Diagnosis Discharge Diagnosis (1) Thyroid disorder: Status: Acute Code(s): E07.9 - Disorder of thyroid, unspecified (2) Delivery by section: Status: Acute Plan Discharge home Medications at Discharge Home Medications metoprolol tartrate 25 mg tablet 25 mg PO DAILY hypertension 03/29/24 propylthiouracil 50 mg tablet 100 mg PO TID hyperthyroidism 03/29/24 Hospital Course Operations section Procedures None Summary of Care Provided Minutes Spent on Discharge: 22 Hospital Course: IOL for HTN. Primary for failure to progress. Uncomplicated post . Bottle feeeding Physical Exam Const alert General Appearance: cooperative GI GI Narrative: soft, moderate distention, fundus firm, appropriately tender. Abdominal bandage clean dry and intact Weight / BMI Weight Weight: 130.635 kg Body Mass Index (BMI) 42.5 ABG / Lab / Microbiology Data 06/24/24 05:15 D/C Instructions Discharge Diet: No restrictions May resume sexual activity in: 4-6 weeks Lifting Restrictions: 20 pounds Additional Activity Instructions: Nothing in the vagina for 4-6 weeks. You may return to work/school in 6 weeks. Call your doctor if your incision/area has: Continuous Slow Oozing, Sudden Increased Bleeding, Increased Pain/ Swelling, Increased Redness and Foul Smelling Discharge Call your doctor if you observe: Fever of 101 or Higher and Using more than 1 pad per hour (for 2 hours) Suture Line Care: Avoid Pulling/Pushing and Avoid Pinching/Bending Cleanse incision/area with: Keep Dressing Clean & Dry Please Follow Up With: Salina Stanton MD When: Call to make an appointment for an incision check in 1-2 [phone]. You will need a post check in 6 weeks. Meaningful Use Info Meaningful Use Meaningful Use Diagnoses (Choose all that apply): None applicable Ischemic Stroke Statin Dosing Therapy Reference: STATIN DOSE THERAPY REFERENCE: * Patients > 75 years receive moderate or high dose statin therapy. * Patients 75 years or YOUNGER should receive HIGH intensity statin dose unless contraindicated. You will be required to document reason for non-treatment if statin daily dose does not meet guidelines. HIGH DOSE STATIN THERAPY DAILY Atorvastatin > than or = to 40 mg Rosuvastatin > than or = to 20 mg Amlodipine + Atorvastatin > than or = to 2.5/40 mg Ezetimibe + Simvastatin 10/80 mg Simvastatin 80mg Discharge Plan Admission Admit Date/Time: 06/23/24 07:25 Primary Reason for Your Visit: induction Attending Provider: Gracie Noel Primary Care Provider: Epi Martini Discharge Orders/Prescriptions Prescriptions: Continued propylthiouracil 50 mg tablet 100 mg PO TID metoprolol tartrate 25 mg tablet 25 mg PO DAILY Discontinued aspirin [Adult Low Dose Aspirin] 81 mg tablet,delayed release (DR/EC) 81 mg PO DAILY Referrals / Follow Up: Epi Martini MD [Primary Care Provider] - Disposition Disposition (needs filled in before D/C Order can be placed): Home, Self Care
[2024-06-26 10:26] VITALS: BP 133/80; PULSE 94
[2024-06-26] MEDS: Metoprolol Tartrate 25 MG Tablet PO (10:26)
[2024-06-26] MEDS: Senna/Docusate Sodium 1 Tablet PO (10:26)
[2024-06-26] MEDS: Ferrous Sulfate 325 MG Tablet PO (12:06)
--- NOTE | 2024-07-02 14:29 | NURSING ---
Follow up phone call made, no answer, left voicemail
== END 2024-06-26 13:45 | disposition home or self-care (01) | DRG 788 ==
PROVIDERS: Admitting Provider Obstetrics & Gynecology; PCP Family Medicine; Visit Provider Obstetrics & Gynecology
DX: O10.02 Pre-existing essential hypertension complicating childbirth (principal); E66.9 Obesity, unspecified; E05.90 Thyrotoxicosis, unspecified without thyrotoxic crisis or storm; O99.214 Obesity complicating childbirth; O33.9 Maternal care for disproportion, unspecified; O62.0 Primary inadequate contractions; O99.284 Endocrine, nutritional and metabolic diseases complicating childbirth; Z3A.38 38 weeks gestation of pregnancy; Z37.0 Single live birth
CPT/HCPCS: 59025; 59050; 85025; 85027; 86780; 86850; 86900; 86901; 99221; J7120; A4216; G0378